=== PATIENT | male | born 1955 | race Caucasian/White ===

== ENCOUNTER 2023-09-24 13:07 | Inpatient (IN) | payer OTHER, MEDICARE, SELFPAY ==
[2023-09-24] VITALS (22 sets, daily range): BP systolic 130–193; BP diastolic 86–143; BMI 29.7
[2023-09-24 10:05] LABS: % Basophils 0.2 % (0-2); % Eosinophils 0.1 % (0-6); % Immature Granulocytes 0.1 % (0-0.5); % Lymphocytes 13.5 % (20.5-51.1); % Monocytes 6.3 % (1.7-9.3); % Neutrophils 79.8 % (42.2-75.2); Absolute Lymphocytes 1.5 10^3/uL (1.2-3.4); Absolute Monocytes 0.7 10^3/uL (0.1-0.6); Absolute Neutrophils 8.7 10^3/uL (1.4-6.5); Hematocrit 46.5 % (39.0-52.0); Hemoglobin 15.7 g/dL (13.0-18.0); Mean Corp Hgb Conc. 33.8 g/dL (33.0-37.0); Mean Corpuscular Hgb 31.8 pg (27.0-31.0); Mean Corpuscular Volume 94.3 fL (80.0-94.0); Mean Platelet Volume 8.9 fL (7.4-10.4); Nucleated Red Blood Cells % 0 % (-); Platelet Count 334 10^3/uL (130-400); Red Blood Cell Count 4.93 10^6/uL (4.70-6.10); Red Cell Dist. Width 13.8 % (11.5-14.5); White Blood Cell Count 10.9 10^3/uL (4.8-10.8)
--- NOTE | 2023-09-24 10:08 | ED.GENMED ---
History of Present Illness
General
Chief Complaint: Breathing Problem
Source: patient
Exam Limitations: none
Time Seen by Provider: 09/24/23 09:50
Nursing documentation reviewed up to this point in time: agreed with
Travel History
Have you had any contact with someone who has COVID-19?: No
Do you have any symptoms of coronavirus? Fever > 100 degrees, chills, cough, shortness of breath, sore throat, loss of taste or smell, muscle aches, or headache?: No
History of Present Illness
History of Present Illness:
68-year-old male who presents emergency room complaining of a lingering cough for the past several weeks to months. He also reports intermittent palpitations. His shortness of breath got worse on .
Past History
Past History
ED Past Medical History: Other (Kidney stones)
ED Past Surgical History: Orthopedic (Bilateral knee surgery) and Other (Cataracts)
Social History
Tobacco: Non-smoker
Alcohol: Occasional
Drug: None
Living: with family
Review of Systems
Review of Systems
Allergies reviewed?: Yes
All Other Systems: Not applicable
Constitutional: Reports no symptoms
EENT: Reports no symptoms
Respiratory: Reports trouble breathing
Cardiac: Reports palpitations
ABD/GI: Reports no symptoms
: Reports no symptoms
Musculoskeletal: Reports no symptoms
Skin: Reports no symptoms
Neurological: Reports no symptoms
Endocrine: Reports no symptoms
Hematologic/Lymphatic: Reports no symptoms
Psychiatric: Reports no symptoms
Phy Exam
Physical Exam
Physical Exam:
Physical Exam
General: no apparent distress, not acutely ill
Neck: supple. no meningeal signs. normal posterior pharynx
Heart: s1/s2 tachycardia, irregular rhythm, no murmur. equal radial
pulses.
HEENT: Pupils equal round reactive to light, EOMI
Lungs: no acute respiratory distress. clear bilaterally
Abdomen: normal bowel sounds. not tender. no CVAT
Neuro: alert and oriented. no focal neurological deficits cranial nerves II through XII intact
Skin: no rash
Psychiatric: well kept. interactive and cooperative
Extremities: no edema. no calf tenderness. negative homans. good distal pulses
Scores
Heart Failure Risk
Heart Failure Risk Score: Yes
History of Stroke or TIA: No
History of intubation for respiratory distress: No
Heart rate on ED arrival >/= 110: Yes
SaO2 <90% on arrival on room air: No
HR >/=110 during 3min walk test (or too ill to perform test): Yes
ECG has acute ischemic changes: No
Urea >/=12mmol/L (BUN 33.6mg/dL): No
Serum CO2>/=35mmol/L: No
Troponin I or T elevated to ID Level (0.4mg/dL): No
NT-proBNP >/=5,000ng/L (5,000pg/ml): Yes
HF Risk Score: 3
Admission Status: HIGH RISK 15.9% Consider SNF treatment or admission to hospital
Course
Orders/Labs/Results
Orders:
Orders
09/24/23 09:44
ECG [Electrocardiogram (*1)] Urgent
Reason for Study: Shortness of Breath
EKG- Treatment ONCE
09/24/23 09:52
IV Insert/Care/Rem.- Treatment PRN
Pulse Ox/cont/shift [RESP] Stat
Quantity: 1
09/24/23 09:53
Cardiac Monitoring- Treatment ONCE
09/24/23 09:57
Complete Blood Count/With Diff Urgent
Comprehensive Metabolic Panel Urgent
Magnesium Urgent
NT-proBNP Urgent
PTT Urgent
Prothrombin Time Urgent
Troponin I Urgent
09/24/23 10:08
Diltiazem 125 mg/125 ml Nss [Cardizem] 125 mg in 125 ml IV NOW
Initial dose in mg/hr, then titrate:: 5
Titrate to keep:: Heart rate 80-100 bpm
Titrate by mg/hr:: 5 mg/hr
Frequency of titrations (minutes):: 15
Maximum dose in mg/hr:: 15
Diltiazem HCl [Cardizem] 5 mg IV NOW STA
09/24/23 10:42
CR Chest Portable - 1 View Urgent
Comment:
Reason For Exam: short of breath
Reason Study Needs to be Portable: Patient Unstable
09/24/23 11:00
CARDIOLOGY CONSULT Routine
Consulting Provider: Flaco Ruiz
Was physician already notified: Yes
Reason for consult: afib with RVR
09/24/23 12:36
Furosemide [Lasix] 40 mg IV NOW STA
09/24/23 12:38
Urinalysis Reflex To Culture Routine
Abnormal Lab Results
09/24/23
09:57
WBC 10.9 H 10^3/uL
(4.8-10.8)
MCV 94.3 H fL
(80.0-94.0)
MCH 31.8 H pg
(27.0-31.0)
Absolute Neuts (auto) 8.7 H 10^3/uL
(1.4-6.5)
Absolute Monos (auto) 0.7 H 10^3/uL
(0.1-0.6)
Neutrophils % 79.8 H %
(42.2-75.2)
Lymphocytes % 13.5 L %
(20.5-51.1)
BUN 25 H mg/dl
(9-20)
Glucose 156 H mg/dl
(70-99)
Total Bilirubin 1.4 H mg/dl
(0.2-1.3)
Troponin I 0.064 H* ng/ml
Total Protein 8.4 H g/dl
(6.3-8.2)
Albumin 5.1 H g/dl
(3.5-5.0)
09/24/23 09:57
09/24/23 09:57
Vital Signs
Initial and Last Documented VS:
Initial Vital Signs
Temp Pulse Resp BP Pulse Ox
97.8 F 148 24 158/131 95
09/24/23 09:40 09/24/23 09:40 09/24/23 09:40 09/24/23 09:40 09/24/23 09:40
Last Documented Vital Signs
Temp Pulse Resp BP Pulse Ox
97.8 F 88 31 169/109 95
09/24/23 09:40 09/24/23 12:15 09/24/23 12:15 09/24/23 12:00 09/24/23 09:40
MDM/Problems Addressed
Differential Diagnosis Includes:
CHF, rapid atrial fibrillation
MDM/Problems Addressed:
Six 8-year-old male with CHF exacerbation and rapid atrial fibrillation new onset. IV Lasix, diltiazem drip given, admit to hospitalist.
Acute Exacerbation and/or Progression of Chronic Illness: HTN, Arrhythmia and Other (CHF)
*Radiology
Radiology exam reviewed: radiology read reviewed (Chest x-ray shows mild CHF)
*Pulse Oximetry
Patient hypoxic: no
*EKG
Interpreted by ED Provider?: Yes
EKG Intrepretation Date: 09/24/23
EKG Intrepretation Time: 09:46
Interpretation: abnormal
Comparison EKG: changes noted
Heart Rate: 151
Rate: tachycardiac
Rhythm: a-fib
[place]: normal axis
Interval: normal interval
QRS Pattern: normal QRS
Ischemia: no ischemia
*Director Of Security Interpretation
Rate: tachycardiac
Interpretation: abnormal
Heart Rate: 155
Rhythm: a-fib
*Critical Care Note
Total Time (30-74mins, 75-104mins- exclusive of procedures): 30
comment:
Critical care statement: A total of 30 minutes of critical care time was provided for this patient. This includes management of unstable vital signs, evaluation of the patient at bedside, reviewing the patient's pertinent medical records, discussion
with consultants, review of old EKGs and review of pertinent medical records. This time with separate from time utilized to perform the aforementioned documented procedures
Patient Management
Social determinants of health affecting care: Living situation
Discussion with other providers: Hospitalist
Escalation/DeEscalation of care consider admission/obs:
Admission indicated
ED Attending Note
-
Portions of this chart may have been created with voice recognition software.� Occasional wrong word or��sound alike� substitutions may have occurred due to the inherent limitations of voice recognition software.
Discharge Plan
Departure
Patient Disposition: Admit
Date of Disposition: 09/24/23
Time of Disposition: 10:43
Admit to: IVU
Presentation/result/management discussed w/ accepting MD/DO: Hospitalist
Patient with high blood pressure during this ER visit?: Yes
Condition: Fair
Discharge Problem:
Atrial fibrillation with rapid ventricular response, Hypertensive urgency, Acute exacerbation of CHF (congestive heart failure)
Prescriptions:
No Action
aspirin 81 mg Tablet,Delayed Release (Dr/Ec)
81 mg PO DAILY
ibuprofen 200 mg Tablet
600 mg PO DAILYPRN PRN (Reason: mild pain)
Nature Fuel Beets
2 tab PO DAILY
Super Beta Prostate
1 tab PO BID
cholecalciferol (vitamin D3)
3 - 4 cap PO DAILYPRN PRN (Reason: supplement)
melatonin
2 gummy PO HSPRN PRN (Reason: sleep)
Referrals:
Huber Vasquez MD [Family Provider] -
Interventions
Interventions:
*Risk Screen - Suicide Last Done: 09/24/23 10:00
*General Assessment Last Done: 09/24/23 09:59
*Neglect/Abuse Screening Last Done: 09/24/23 10:00
ED- Fall Risk Assessment Last Done: 09/24/23 10:01
*ED COVID-19 Vaccine History Last Done: 09/24/23 09:59
ED- Cardiac Assessment Last Done: 09/24/23 10:01
ED- Pulmonary Assessment Last Done: 09/24/23 10:01
Discharge Date and Time
Print Language: MALDIVIAN
[2023-09-24] MEDS: CARDIZEM 125 IV (10:13)
[2023-09-24] MEDS: CARDIZEM 5 MG IV (10:13)
[2023-09-24 10:16] LABS: APTT 26.7 Sec (23.4-35.0); INR 1.13; PT 14.4 Sec (11.4-14.6)
[2023-09-24 10:22] LABS: ALT (SGPT) 50 U/L (0-50); AST (SGOT) 37 U/L (17-59); Albumin 5.1 g/dl (3.5-5.0); Alkaline Phosphatase 86 U/L (38-126); Blood Urea Nitrogen 25 mg/dl (9-20); Carbon Dioxide 22 mmol/L (22-30); Chloride 104 mmol/L (98-107); Estimated Creatinine Clearance 85 ml/min; Glucose 156 mg/dl (70-99); Magnesium 2.1 mg/dl (1.6-2.3); Potassium 4.6 mmol/L (3.5-5.1); Sodium 138 mmol/L (135-145); Total Bilirubin 1.4 mg/dl (0.2-1.3); Total Protein 8.4 g/dl (6.3-8.2); eGFR > 60.00
[2023-09-24 10:40] LABS: Troponin I 0.064 ng/ml
[2023-09-24 10:41] LABS: NT-proBNP 7650 pg/ml
--- NOTE | 2023-09-24 11:54 | CON.CAR ---
Addendum entered and electronically signed by Devante Soriano MD 09/24/23 14:40:
I saw and examined the patient.
The PUZZLE ASSEMBLER's note was reviewed and I agree with the note.
Comment: 68-year-old gentleman who does not seek routine medical care presents with feeling unwell over the last several weeks to months. He has had 'colds'. However lately he has not been able to lie flat in the bed without shortness of breath.
He has no chest pain, typically exercises but has been dealing with his mother who recently had a stroke. Today, he arrives in atrial fibrillation with rapid ventricular response. He is controlled with diltiazem drip. Vital signs have shown
persistently elevated hypertension on exam, he appears in no apparent distress he has an elevated JVP at 13 cm of H2O, lungs are clear to auscultation irregularly irregular rhythm no murmur rubs or gallop. Extremities are warm well-perfused. Chest
x-ray shows mild pulmonary edema. EKG shows A-fib with LVH. Overall, I wonder if his 'colds' were always heart failure. He is in atrial fibrillation with rapid ventricular response and this is likely resulted in heart failure. He has been
managed on a diltiazem drip, initial plan was for RUPA cardioversion but he has just spontaneously converted. Will begin beta-chalo. Will check a TTE. CHADS2 Vascor is at least a 2, I suspect possibly a 3 given elevated blood sugar. I will
check a hemoglobin A1c. We will start Eliquis 5 mg p.o. twice daily. Will continue Lasix for diuresis. We will ask case management to samaniego out both Eliquis and SGLT2 inhibitors.
Will follow.
Original Note:
Consultation
Consultation Request
Date/Time Consultation Requested: 09/24/23 11a
Date/Time Consultation Performed: 09/24/23 11:30a
Requesting Provider: Dr. Thacker
Performing Provider: ARTHUR Mcdermott for Dr. Soriano
Reason for Consultation: Afib with RVR
Medical History
-
Chief Complaint: SOB
History of Present Illness:
Mr. Moran is a 68 yo male with kidney stones, and OA b/l knees, who presents to the ER with c/o SOB and cough since last week. SOB is worse with lying flat and exertion, mildly improves with rest. Had a viral illness last week that he felt
never improved. EKG in the ER shows Afib with RVR 151 bpm, he is on a Cardizem drip with improvement of rates in the 90s. He is admitted to the hospitalist service and we are consulted for Afib with RVR. He admits not seeing his PCP in 13 years.
BP is significantly elevated in the ER today. Currently at rest denies SOB.
Past Medical History
Past Medical History: Other (as above)
Past Surgical History: Orthopedic (b/l knee arthroscopy) and Other (cataracts)
Social History
Tobacco: Former Smoker (2 cigarettes a day for 15 years, quit last year)
Alcohol: Occasional
Personal:
Living: With Family
Employment: Employed ([employer]/data/email)
Family History
Family History: Reviewed & Not Pertinent
Allergies / Home Medications
Allergy/AdvReac Type Severity Reaction Status Date / Time
tetanus toxoid, adsorbed Allergy Swelling Verified 09/24/23 10:13
NOT.[id number] - Not Allergy Intermediate Swelling Uncoded 09/24/23 10:13
Converted 89. See Text.
�Medication �Instructions �Recorded �Confirmed �Type
Nature Fuel Beets 2 tab PO DAILY Supplement 09/24/23 09/24/23 History
Super Beta Prostate 1 tab PO BID Supplement 09/24/23 09/24/23 History
aspirin 81 mg tablet,delayed 81 mg PO DAILY Blood Clot 09/24/23 09/24/23 History
release Prevention/Tx
cholecalciferol (vitamin D3) 3 - 4 cap PO DAILYPRN PRN 09/24/23 09/24/23 History
supplement
ibuprofen 200 mg tablet 600 mg PO DAILYPRN PRN mild pain 09/24/23 09/24/23 History
melatonin 2 gummy PO HSPRN PRN sleep 09/24/23 09/24/23 History
Review of Systems
-
History Source: Patient
All other systems: Negative unless noted
Physical Exam
Vital Signs
Temp Pulse Resp BP Pulse Ox
97.8 F 93 27 144/116 95
09/24/23 09:40 09/24/23 11:45 09/24/23 11:45 09/24/23 11:30 09/24/23 09:40
Lab Results
09/24/23 09:57
09/24/23 09:57
Troponin I 0.064 ng/ml H* 09/24/23 09:57
Peq-T-Agsaxwsshty Pept 7650 pg/ml 09/24/23 09:57
Physical Exam
General: Well Developed, Well Nourished and No Apparent Distress
HEENT: Normocephalic, Anicteric and Moist Mucous Membranes
Respiratory: Clear (mildly diminished b/l bases)
Cardiac: S1/S2 and Irregular Rhythm (tachy)
Breast: Deferred by me
GI: Soft, Non Tender, Non Distended and Normal Bowel Sounds
Rectal: Deferred by Provider
Genito-urinary: No Costovertebral Tender
Musculoskeletal: No Clubbing, No Cyanosis and No Edema
Skin: Warm and Dry
Neuro: AO x 3
Hematologic/Lymphatic: No Lymphadenopathy
Psych: Calm
Impression / Plan
-
Afib - RVR, duration unknown.
- c/o SOB and cough.
- IV Cardizem for rate control, continue.
- [id number] VASc score is 2 (age, new HTN, check hgba1c).
- plan for RUPA/DCCV tomorrow.
SOB - mild CHF on CXR, unknown type.
- check echo.
- proBNP 7650.
- IV Lasix and monitor.
Non-ischemic myocardial injury - acute in the setting of rapid Afib.
- troponin 0.064, trend.
- denies chest pain or SOB now.
Elevated BP - new, acute in the ER.
- monitor with Cardizem.
Data Reviewed
-
EKG: Tracing Personally Visualized and interpreted (Afib with RVR 151 bpm, LVH)
Radiology: Report Reviewed by me (cxr: Probable tiny bilateral pleural effusions, mild CHF)
Labs: Labs Reviewed by me
Old Records: Reviewed
--- NOTE | 2023-09-24 12:17 | HPS.HSE ---
Family Physician
-
Family Physician: Huber Vasquez
Chief Complaint
-
Cough and short of breath
History of Present Illness
68-year-old with no significant past medical history presented to us with lingering cough for past 3 weeks. Patient had upper respiratory infection 3 weeks ago, since then he has lingering cough, which actually is getting better. Patient stated
white sputum with cough. Patient noticed short of breath since last week. Short of breath worse with exertion. Patient also complained of orthopnea. Patient could not sleep last few nights due to short of breath. Denied any weight gain or
swelling. Patient denied any palpitation. He complained of chest heaviness, which he noticed when laying flat. Patient stated no she has not been poor appetite. Patient complained of lightheadedness. Patient denied any deep dysuria or hematuria
but stated very bad odor to his urine. Patient denies any abdominal pain, vomiting, diarrhea. Patient denies any headache or syncope. Patient denies runny nose, congestion.
Patient was noted in A-fib with RVR. Initiated on Cardizem drip. Chest x-ray with mild CHF. Patient was also noted to have elevated Trope. Admitting for further management.
Medical History
Past Medical History
Past Medical History: Reports Other
Additional Past Medical History:
Kidney stones
Past Surgical History: Reports Other
Additional Past Surgical History:
Bilateral meniscus repair
Cataract surgery
Social History
Tobacco: Smoker (1 to 2 cigars weekly)
Alcohol: Occasional
Drug: None
Personal:
Living: With Family
Employment: Employed
Family History
Family History: Not pertinent
Allergies / Home Medications
Allergies reflects when Allergies were last updated in [facility].
Home Medications with original date entered in [facility]
Allergy/Medication List:
Allergies
Allergy/AdvReac Type Severity Reaction Status Date / Time
tetanus toxoid, adsorbed Allergy Swelling Verified 09/24/23 10:13
NOT.[id number] - Not Allergy Intermediate Swelling Uncoded 09/24/23 10:13
Converted 89. See Text.
Home Medications
Nature Fuel Beets 2 tab PO DAILY Supplement 09/24/23
Super Beta Prostate 1 tab PO BID Supplement 09/24/23
aspirin 81 mg tablet,delayed release 81 mg PO DAILY Blood Clot Prevention/Tx 09/24/23
cholecalciferol (vitamin D3) 3 - 4 cap PO DAILYPRN PRN supplement 09/24/23
ibuprofen 200 mg tablet 600 mg PO DAILYPRN PRN mild pain 09/24/23
melatonin 2 gummy PO HSPRN PRN sleep 09/24/23
Review of Systems
-
Constitutional: Reports No Symptoms
EENT: Reports No Symptoms
Respiratory: Reports Cough and Trouble Breathing
Cardiac: Reports No Symptoms
Abdomen/GI: Reports Nausea
: Reports No Symptoms
Musculoskeletal: Reports No Symptoms
Skin: Reports No Symptoms
Neurological: Reports No Symptoms
Endocrine: Reports No Symptoms
Hematologic/Lymphatic: Reports No Symptoms
Psych: Reports No Symptoms
Physical Exam
Vital Signs
Vital Signs
Temp Pulse Resp BP Pulse Ox
97.8 F 93 27 144/116 95
09/24/23 09:40 09/24/23 11:45 09/24/23 11:45 09/24/23 11:30 09/24/23 09:40
Physical Exam
General: Well Developed, Well Nourished and No Apparent Distress
HEENT: NormoCephalic, Moist mucous membranes and Atraumatic
Respiratory: Clear
Cardiac: Irregular Rhythm; No Murmur or Rub
GI: Soft, Non Tender, Non Distended and Normal Bowel Sounds; No Organomegaly
Rectal: Deferred by Provider
Musculoskeletal: No Clubbing, No Cyanosis and No Edema
Skin: No Rash
Neuro: AO x 3 and Nonfocal/grossly intact
Psych: Calm
Laboratory Results
-
09/24/23 09:57
09/24/23 09:57
Laboratory Results
PT 14.4 Sec (11.4-14.6) 09/24/23 09:57
INR 1.13 09/24/23 09:57
APTT 26.7 Sec (23.4-35.0) 09/24/23 09:57
Total Bilirubin 1.4 mg/dl (0.2-1.3) H 09/24/23 09:57
AST 37 U/L (17-59) 09/24/23 09:57
ALT 50 U/L (0-50) 09/24/23 09:57
Alkaline Phosphatase 86 U/L (38-126) 09/24/23 09:57
Troponin I 0.064 ng/ml H* 09/24/23 09:57
Data Reviewed
-
Diagnostic Radiology: Report Reviewed by me
Lab Data: Labs Reviewed by me
Impression/Plan
-
# New onset A-fib with RVR
-EKG with A-fib with RVR
-On Cardizem drip
-Obtain echocardiogram
-Continue to monitor heart rate
-Cardiology consult
# Elevated troponin likely demand ischemia
-Trop 0.064
-Continue to trend Trope
-No complaints of chest pain
# Hypertension
-Blood pressure elevated in ER
-lasix added, monitor BP on Lasix.
# New onset mild CHF
-BNP 7650
-Chest x-ray with impression of Prominence of the interstitial markings concerning for mild CHF.Mild cardiomegaly.Probable tiny bilateral pleural effusions.
-IV Lasix
-Strict OMAR
-Daily weight
-fluid restriction
-Cardiology consult
# DVT prophylaxis
-Lovenox
# CODE STATUS
-Full code
[2023-09-24] MEDS: LASIX 40 MG IV ×2 (12:42→16:57)
--- NOTE | 2023-09-24 13:43 | W.PN.UPDATE ---
Update Note
Progress Note Update
I saw and examined the patient.
The LOOKBACK COORDINATOR or PA's note was reviewed and I agree with the note.
Comment: 68-year-old male who presents with cough and shortness of breath.
144/116, 93, 27, 97.8 �F, 95% on room air
NAD, awake and alert
irreg/irreg, normal S1/S2
CTAB
+BS/soft/NT/ND
CN2-12 intact
no LE edema
CXR: Prominence of the interstitial markings concerning for mild CHF. Mild cardiomegaly. Probable tiny bilateral pleural effusions.
WBC 10.9
proBNP 7650
Trop 0.064
Acute CHF due to afib with RVR:
-check echo
-Lasix 40mg IV BID
-cardizem gtt started in ER, currently at 15mg/hr
-FR
-daily wts, I/Os
[2023-09-24] MEDS: LOPRESSOR 25 MG PO ×3 (14:43→23:16)
[2023-09-24 14:59] LABS: Urine Albumin Trace (Neg - Trace); Urine Bilirubin Negative (Negative); Urine Character Clear (Clear); Urine Color Yellow; Urine Glucose Negative (Negative); Urine Ketone 1+ (Negative); Urine Leukocyte Negative (Negative); Urine Nitrite Negative (Negative); Urine Occult Blood Negative (Negative); Urine Urobilinogen Negative (Neg - 1+)
--- NOTE | 2023-09-24 15:40 | W.PN.UPDATE ---
Update Note
Progress Note Update
Patient seen and evaluated at bedside again. No new symptoms. Cardizem drip was weaned to 5 mg/hour and the patient's heart rate was in the 60s and then stopped. He has had good UOP with lasix as per nursing. There was one blood pressure reading
of 91/77 at 1531. Repeat BP (done by me) 120/92. Will initiate Cardizem 30mg PO Q6H. This was communicated with the ER nurse, Vee Martinez. OK for pt to go to telemetry at this time. Should his cardizem gtt need to be restarted he will need IMU or
IVU.
[2023-09-24] MEDS: LOVENOX 40 MG SC (17:00)
[2023-09-24 17:19] LABS: Troponin I 0.088 ng/ml
[2023-09-24 22:40] LABS: Troponin I 0.086 ng/ml
--- NOTE | 2023-09-24 23:42 | PTCARENOTE ---
Received patient in bed upon change of shift. Patient AAOX3. Denies pain or chest discomfort. Patient does state some SOB ' possibly anxiety' per patient. Pulse ox 94% room air. Patient placed on 02 @ 2 liters with increase to 97% and patient states
feels better. Monitor and EKG showing Afib with heart rate in the 60's to 80's. oriented to unit. call lopez within reach.
[2023-09-25] VITALS (7 sets, daily range): BP systolic 140–174; BP diastolic 85–128; BMI 28.4
[2023-09-25 05:56] LABS: Hematocrit 43.6 % (39.0-52.0); Hemoglobin 14.6 g/dL (13.0-18.0); Mean Corp Hgb Conc. 33.5 g/dL (33.0-37.0); Mean Corpuscular Hgb 31.9 pg (27.0-31.0); Mean Corpuscular Volume 95.2 fL (80.0-94.0); Mean Platelet Volume 9.1 fL (7.4-10.4); Platelet Count 283 10^3/uL (130-400); Red Blood Cell Count 4.58 10^6/uL (4.70-6.10); White Blood Cell Count 8.3 10^3/uL (4.8-10.8)
[2023-09-25] MEDS: LOPRESSOR 25 MG PO ×2 (06:10→11:12)
[2023-09-25 06:21] LABS: ALT (SGPT) 43 U/L (0-50); AST (SGOT) 33 U/L (17-59); Albumin 4.4 g/dl (3.5-5.0); Alkaline Phosphatase 76 U/L (38-126); Blood Urea Nitrogen 29 mg/dl (9-20); Calcium 9.2 mg/dl (8.4-10.2); Carbon Dioxide 26 mmol/L (22-30); Chloride 103 mmol/L (98-107); Direct Bilirubin 0.3 mg/dl (0.0-0.4); Estimated Creatinine Clearance 69 ml/min; Glucose 105 mg/dl (70-99); HDL Cholesterol 38 mg/dl; LDL Cholesterol, Calculated 113 mg/dl; Magnesium 2.1 mg/dl (1.6-2.3); Potassium 4.2 mmol/L (3.5-5.1); Sodium 139 mmol/L (135-145); Total Bilirubin 1.1 mg/dl (0.2-1.3); Total Cholesterol 169 mg/dl (50-199); Total Protein 7.3 g/dl (6.3-8.2); Triglyceride 93 mg/dl (10-149); Very Low Density Lipoprotein 18 mg/dl (0-30); eGFR > 60.00
[2023-09-25 06:49] LABS: TSH Reflex To Free T4 1.61 uIU/ml (0.47-4.68)
[2023-09-25 07:11] LABS: Hepatitis C Antibody Negative (Negative)
[2023-09-25] MEDS: ASPIR LOW (ENTERIC COATED) 81 MG PO (07:57)
[2023-09-25] MEDS: LASIX 40 MG IV ×2 (07:58→15:25)
[2023-09-25 09:22] LABS: Glycohemoglobin (HgbA1c) 6.4 % (4.0-5.6)
--- NOTE | 2023-09-25 09:38 | W.PN.CD ---
Addendum entered and electronically signed by Devante Soriano MD 09/25/23 12:15:
I saw and examined the patient.
The REFRIGERATOR CABINETMAKER's note was reviewed and I agree with the note.
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 Will continue with diuresis. Add GDMT as able. Thankfully rate controlled, so will transition metoprolol to succinate, add MRA and when
euvolemic start Entresto. SGLT2i if affordable. Would recommend reassessment of ef after nsr is restored, would not hold DOAC for cath given large thombus.
Original Note:
Today's Communication / Plan
-
Stop Lovenox and ASA
Start apixaban 5mg BID
Impression / Plan
-
BACKGROUND: 68M with kidney stones and OA (B/L knees) presented with SOB x1 week
Atrial fibrillation with RVR, duration unknown.
-Endorses fatigue
-Back in atrial fibrillation
-Bradycardia with diltiazem gtt, transitioned to metoprolol tartrate Q6H yesterday afternoon
-[id number] VASc score is 3 (age, HTN, DM), start apixaban 5mg BID
SOB, in the setting of acute heart failure type unknown
-Improving with diuresis
-Echocardiogram today
-proBNP 7650.
-Can consider adding SGLT2i if affordable
Non-ischemic myocardial injury - acute in the setting of tachyarrhythmia
-Peak troponin 0.088
-CP free
HTN - new, acute in the ER.
-May need to add additional agent, follow
Type II DM, NEW, Hgba1c 6.4%
Physical Exam
Vital Signs/Labs
Vital Signs
Temp Pulse Resp BP Pulse Ox
97.7 F 60 18 151/117 96
09/25/23 07:57 09/25/23 07:57 09/25/23 07:57 09/25/23 07:58 09/25/23 07:57
09/24/23 09/25/23 09/26/23
06:59 06:59 06:59
Actual Weight 82.157 kg
09/25/23 04:44
09/25/23 04:44
PT 14.4 Sec (11.4-14.6) 09/24/23 09:57
INR 1.13 09/24/23 09:57
APTT 26.7 Sec (23.4-35.0) 09/24/23 09:57
Magnesium 2.1 mg/dl (1.6-2.3) 09/25/23 04:44
Triglycerides 93 mg/dl (10-149) 09/25/23 04:44
LDL Cholesterol, Calc 113 mg/dl 09/25/23 04:44
VLDL Cholesterol, Calc 18 mg/dl (0-30) 09/25/23 04:44
HDL Cholesterol 38 mg/dl 09/25/23 04:44
09/24/23
09:57
Bjm-C-Wkaizifksks Pept 7650
LAB Results
09/24/23 09/24/23 09/24/23
09:57 16:32 22:06
Troponin I 0.064 H* 0.088 H* D 0.086 H*
Physical Exam
Constitutional: No acute distress
EENT: Anicteric and Moist mucous membranes
Cardiovascular: Rhythm/rate is irregular and S1S2 is normal
Respiratory: Respiratory effort normal and Lungs clear to auscul.
GI: Soft, Distention absent, Flat and Non tender
Neuro/Psych: AO x 3
Other: Skin (warm and dry)
Data Reviewed
-
Date of Service: September 25, 2023
--- NOTE | 2023-09-25 09:41 | W.PN.HOSP.TC ---
Today's Communication/Plan
-
see bold
Assessment / Plan
Assessment / Plan
Gen: NAD, AAOx3.
Eyes: EOMI, PERRLA, no scleral icterus.
Neck: supple.
CV: irreg/irreg, +S1/S2, no m/r/g.
Resp: CTAB, no rales, wheezes, or rhonchi.
Abd: +BS, soft, NT, ND
Skin: No rashes. No LE edema
Neuro: CN 2-12 intact, non-focal.
Psych: Normal mood and affect.
CXR: Prominence of the interstitial markings concerning for mild CHF. Mild cardiomegaly. Probable tiny bilateral pleural effusions.
Acute CHF due to afib with RVR:
-proBNP 7650
-Minimally elevated, flat, troponins represent acute nonischemic myocardial injury
-check echo (for RUPA/CV today)
-Lasix 40mg IV BID
-cardizem gtt started in ER and was weaned to off before transfer to the floor
-cont Lopressor 25mg PO Q6H
-FR
-daily wts, I/Os
Elevated BP:
-cont BB
-await echo which will determine meds fo GDMT
Discussed with Dr. Soriano, [place] Eli, RN at length.
FULL/Lovenox
Total time spent on today's encounter was 50 minutes which included time spent in counseling the patient/family regarding diagnosis and treatment plan as listed above, goals of care, and symptom management. Case was discussed with nursing staff,
specialists, and care coordinators/case management. All labs and imaging personally reviewed by me. Remainder the time spent in detailed review of previous records, lab data, imaging, and other medical provider documentation.
Anticipated Discharge: 24 - 48 hours
Subjective/Interval History
-
Date of Service: September 25, 2023
Report SOB.
Objective Data
-
Labs:
Laboratory Results
09/25/23
04:44
WBC 8.3
Hgb 14.6
Hct 43.6
Plt Count 283
Sodium 139
Potassium 4.2
Chloride 103
Carbon Dioxide 26
BUN 29 H
Creatinine 1.1
Glucose 105 H
Calcium 9.2
Total Bilirubin 1.1
AST 33
ALT 43
Alkaline Phosphatase 76
Vital Signs:
Vital Signs
Temp Pulse Resp BP Pulse Ox
97.7 F 60 18 151/117 96
09/25/23 07:57 09/25/23 07:57 09/25/23 07:57 09/25/23 07:58 09/25/23 07:57
--- NOTE | 2023-09-25 10:07 | PTCARENOTE ---
Pt is asymptomatic with elevated blood pressures this morning of 174/117. Dr. Thacker made aware. No changes made at this time.
[2023-09-25] MEDS: ELIQUIS 5 MG PO ×2 (10:20→19:47)
--- NOTE | 2023-09-25 15:33 | CM ---
CM met with pt bedside
Resides with his spouse in a 2SH with 1STE- full flight to 2nd floor
Pt notes independence with his ADLs
Denies use of DMEs
PCP- Huber Vasquez
Rx- [facility]
CM consult for med pricing
Call to [facility] [phone]
All meds same pricing (Eliquis 5mg BID, Farxiga 10mg QD, Jardiance 10mg QD)
$25/30 days retail $50/90 days mail order/[employer]
Update to cardio/Dr Soriano TT
No dc needs anticipated
Discharge Disposition- home, no needs anticipated
[2023-09-25] MEDS: TOPROL XL 100 MG PO (21:16)
[2023-09-26 03:00] VITALS: BP 151/106
[2023-09-26 05:29] VITALS: BMI 27.6
[2023-09-26 05:51] LABS: Hematocrit 43.1 % (39.0-52.0); Hemoglobin 14.8 g/dL (13.0-18.0); Mean Corp Hgb Conc. 34.3 g/dL (33.0-37.0); Mean Corpuscular Hgb 32.4 pg (27.0-31.0); Mean Corpuscular Volume 94.3 fL (80.0-94.0); Mean Platelet Volume 8.9 fL (7.4-10.4); Platelet Count 269 10^3/uL (130-400); Red Blood Cell Count 4.57 10^6/uL (4.70-6.10); Red Cell Dist. Width 13.8 % (11.5-14.5); White Blood Cell Count 8.2 10^3/uL (4.8-10.8)
[2023-09-26 06:16] LABS: Blood Urea Nitrogen 36 mg/dl (9-20); Carbon Dioxide 26 mmol/L (22-30); Chloride 104 mmol/L (98-107); Estimated Creatinine Clearance 62 ml/min; Glucose 102 mg/dl (70-99); Potassium 3.8 mmol/L (3.5-5.1); Sodium 139 mmol/L (135-145); eGFR > 60.00
[2023-09-26 07:30] VITALS: BP 152/105
[2023-09-26] MEDS: LASIX 40 MG IV ×2 (08:46→16:27)
[2023-09-26] MEDS: ALDACTONE 25 MG PO (08:46)
[2023-09-26] MEDS: ELIQUIS 5 MG PO ×2 (08:46→19:48)
[2023-09-26] MEDS: FARXIGA 10 MG PO (08:46)
[2023-09-26] MEDS: ENTRESTO 24 MG/26 MG 1 TAB PO ×2 (09:03→19:49)
--- NOTE | 2023-09-26 09:53 | PTCARENOTE ---
Notified the provider that the patient's pressure was elevated to 152/105 for AM vitals and was also 151/103 at 0300 today. Patient received his ordered morning medications, including Entresto and diuretics. Provider to address during rounds. VS
performed as ordered.
[2023-09-26 11:00] VITALS: BP 136/95
--- NOTE | 2023-09-26 11:38 | W.PN.HOSP.TC ---
Today's Communication/Plan
-
see bold
Assessment / Plan
Assessment / Plan
Gen: remains NAD, AAOx3.
Eyes: EOMI, PERRLA, no scleral icterus.
Neck: supple.
CV: remains irreg/irreg, +S1/S2, no m/r/g.
Resp: remains CTAB, no rales, wheezes, or rhonchi.
Abd: +BS, soft, NT, ND
Skin: No rashes. No LE edema
Neuro: CN 2-12 intact, non-focal.
Psych: Normal mood and affect.
CXR: Prominence of the interstitial markings concerning for mild CHF. Mild cardiomegaly. Probable tiny bilateral pleural effusions.
RUPA: EF 35-40%, global hypokinesis, no significant valve abnormalities, large thrombus in the left atrial appendage.
Acute HFrEF exacerbated by afib with RVR:
-proBNP 7650
-cardizem gtt started in ER and was weaned to off before transfer to the floor
-Minimally elevated, flat, troponins represent acute nonischemic myocardial injury
-on 09/25/23 pt had RUPA for planned CV. With FLORINA thrombus obviously no CV was done.
-echo above, EF 35-40%
-cont Lasix 40mg IV BID
-cont Toprol XL/Aldactone/Entresto/Farxiga
-FR
-daily wts, I/Os
-cont Eliquis
Large thrombus in the left atrial appendage:
-cont Eliquis
Essential hypertension:
-cont Toprol XL/Aldactone/Entresto
Discussed with Dr. Cordon
FULL/Eliquis
Anticipated Discharge: 24 - 48 hours
Subjective/Interval History
-
Date of Service: September 26, 2023
Reports dyspnea on exertion. Denies chest pain or shortness of breath at rest.
Objective Data
-
Labs:
Laboratory Results
09/26/23
05:18
WBC 8.2
Hgb 14.8
Hct 43.1
Plt Count 269
Sodium 139
Potassium 3.8
Chloride 104
Carbon Dioxide 26
BUN 36 H
Creatinine 1.1
Glucose 102 H
Calcium 9.0
Vital Signs:
Vital Signs
Temp Pulse Resp BP Pulse Ox
98.6 F 68 20 152/105 95
09/26/23 07:30 09/26/23 07:30 09/26/23 07:30 09/26/23 07:30 09/26/23 07:30
I&O
09/25/23 09/26/23 09/27/23
06:59 06:59 06:59
Intake Total 480 / 480
Balance 480 / 480
--- NOTE | 2023-09-26 12:17 | CM ---
Chart reviewed and plan is to home when stable no needs.
Plan; Home no needs when stable.
--- NOTE | 2023-09-26 12:24 | W.PN.CD ---
Addendum entered and electronically signed by Jj Cordon MD 09/26/23 13:13:
Patient seen and examined in collaboration with [employer] [facility]; agree with below.
-Patient still with A-fib with RVR today; will increase metoprolol succinate to 100 mg twice daily.
-Continue Lasix 40 mg IV twice daily today; transition to PO tomorrow.
-Will add Entresto for further GDMT.
Original Note:
Today's Communication / Plan
-
-continue IV Lasix
-increase metoprolol to BID and follow telemetry and BP's
Impression / Plan
-
BACKGROUND: 68M with kidney stones and OA (B/L knees) presented with SOB x1 week
Atrial fibrillation with RVR, duration unknown:
-RUPA showed large thrombus in the left atrial appendage.
-continue apixaban 5mg BID
-rates still fast- increase metoprolol to BID
HFrEF: acute
-Improving with diuresis
-RUPA 09/25/23: Moderately reduced left ventricular systolic function. Left ventricular ejection fraction is estimated at 35-40%. Global hypokinesis. Large thrombus in the left atrial appendage.
-now on Farxiga, metoprolol, Entresto, and Aldactone
Non-ischemic myocardial injury - acute in the setting of tachyarrhythmia
-Peak troponin 0.088
-CP free
HTN:
-BP still elevated
-monitor with multiple new meds
Type II DM, NEW, Hgba1c 6.4%:
-management per primary team
Physical Exam
Vital Signs/Labs
Vital Signs
Temp Pulse Resp BP Pulse Ox
98.6 F 68 20 152/105 95
09/26/23 07:30 09/26/23 07:30 09/26/23 07:30 09/26/23 07:30 09/26/23 07:30
09/25/23 09/26/23 09/27/23
06:59 06:59 06:59
Actual Weight 82.157 kg 79.974 kg
09/26/23 05:18
09/26/23 05:18
PT 14.4 Sec (11.4-14.6) 09/24/23 09:57
INR 1.13 09/24/23 09:57
APTT 26.7 Sec (23.4-35.0) 09/24/23 09:57
Magnesium 2.1 mg/dl (1.6-2.3) 09/25/23 04:44
Triglycerides 93 mg/dl (10-149) 09/25/23 04:44
LDL Cholesterol, Calc 113 mg/dl 09/25/23 04:44
VLDL Cholesterol, Calc 18 mg/dl (0-30) 09/25/23 04:44
HDL Cholesterol 38 mg/dl 09/25/23 04:44
09/24/23
09:57
Zmk-P-Lhpbxgqqyow Pept 7650
LAB Results
09/24/23 09/24/23 09/24/23
09:57 16:32 22:06
Troponin I 0.064 H* 0.088 H* D 0.086 H*
Physical Exam
Constitutional: No acute distress
EENT: Anicteric
Cardiovascular: Rhythm/rate is irregular
Respiratory: Respiratory effort normal and Other (lungs diminished to bases)
Neuro/Psych: AO x 3
Data Reviewed
-
Date of Service: September 26, 2023
EKG: Other (tele AFIB rate-controlled)
Labs: Labs Reviewed by me
[2023-09-26] MEDS: TOPROL XL 100 MG PO ×2 (13:03→19:49)
[2023-09-26 15:00] VITALS: BP 109/87
[2023-09-26 19:15] VITALS: BP 126/80
[2023-09-26 22:33] VITALS: BP 122/70
[2023-09-27 03:12] VITALS: BP 109/77
[2023-09-27 06:00] VITALS: BMI 27.0
[2023-09-27 07:30] VITALS: BP 127/78
[2023-09-27 07:34] LABS: Hematocrit 51.1 % (39.0-52.0); Hemoglobin 17.4 g/dL (13.0-18.0); Mean Corp Hgb Conc. 34.1 g/dL (33.0-37.0); Mean Corpuscular Hgb 32.3 pg (27.0-31.0); Platelet Count 334 10^3/uL (130-400); Red Blood Cell Count 5.38 10^6/uL (4.70-6.10); White Blood Cell Count 10.1 10^3/uL (4.8-10.8)
[2023-09-27 07:53] LABS: Blood Urea Nitrogen 41 mg/dl (9-20); Carbon Dioxide 29 mmol/L (22-30); Chloride 102 mmol/L (98-107); Estimated Creatinine Clearance 52 ml/min; Glucose 114 mg/dl (70-99); Potassium 4.6 mmol/L (3.5-5.1); Sodium 143 mmol/L (135-145); eGFR > 60.00
--- NOTE | 2023-09-27 07:58 | W.PN.CD ---
Today's Communication / Plan
-
give IV lasix now then 40mg po daily for discharge
labs ,14 and 21 days
otherwise continue current gdmt
ok for discharge after chf educator
will arrange close follow up
Impression / Plan
-
BACKGROUND: 68M with kidney stones and OA (B/L knees) presented with SOB x1 week
Atrial fibrillation with RVR, duration unknown:
-RUPA showed large thrombus in the left atrial appendage.
-relook will be planned in 4-6 weeks
-continue apixaban 5mg BID
-rates improved
-eventually will benefit from rhythm control with PVI
HFrEF: acute
-Improving with diuresis---wt down to 78.131
-would transition to 40mg po lasix daily after today's IV dose for discharge
-TTE more reliable assessment of LVEF, Severely reduced left ventricular systolic function. Left ventricular ejection fraction is 25-30%.
-RUPA 09/25/23: Moderately reduced left ventricular systolic function. Left ventricular ejection fraction is estimated at 35-40%. Global hypokinesis. Large thrombus in the left atrial appendage.
-now on Farxiga, metoprolol, Entresto, and Aldactone
-he will need labs in 12/08/ days
Non-ischemic myocardial injury - acute in the setting of tachyarrhythmia
-Peak troponin 0.088
-CP free
HTN:
-BP still elevated
-monitor with multiple new meds
Type II DM, NEW, Hgba1c 6.4%:
-management per primary team
Subjective:
he is feeling better, a bit lh when standing but passes quickly
Physical Exam
Vital Signs/Labs
Vital Signs
Temp Pulse Resp BP Pulse Ox
98.2 F 89 18 109/77 96
09/27/23 03:12 09/27/23 03:12 09/27/23 03:12 09/27/23 03:12 09/27/23 03:12
09/26/23 09/27/23 09/28/23
06:59 06:59 06:59
Actual Weight 79.974 kg 78.131 kg
09/27/23 06:31
09/27/23 06:31
PT 14.4 Sec (11.4-14.6) 09/24/23 09:57
INR 1.13 09/24/23 09:57
APTT 26.7 Sec (23.4-35.0) 09/24/23 09:57
Magnesium 2.1 mg/dl (1.6-2.3) 09/25/23 04:44
Triglycerides 93 mg/dl (10-149) 09/25/23 04:44
LDL Cholesterol, Calc 113 mg/dl 09/25/23 04:44
VLDL Cholesterol, Calc 18 mg/dl (0-30) 09/25/23 04:44
HDL Cholesterol 38 mg/dl 09/25/23 04:44
09/24/23
09:57
Xbq-E-Wqrbboaznrn Pept 7650
LAB Results
09/24/23 09/24/23 09/24/23
09:57 16:32 22:06
Troponin I 0.064 H* 0.088 H* D 0.086 H*
Physical Exam
Constitutional: No acute distress
Cardiovascular: Pedal edema is absent, JVD pressure is normal, Systolic murmur absent, Diastolic murmur absent and Rhythm/rate is irregular
Respiratory: Respiratory effort normal, Lungs clear to auscul., Wheeze Absent, Crackles Absent and Rhonchi Absent
Neuro/Psych: AO x 3
Data Reviewed
-
Date of Service: September 27, 2023
EKG: Other (tele: rates improved)
--- NOTE | 2023-09-27 08:52 | W.PN.HOSP.TC ---
Today's Communication/Plan
-
d/c
Assessment / Plan
Assessment / Plan
Gen: continues to remain NAD, AAOx3.
Eyes: EOMI, PERRLA, no scleral icterus.
Neck: supple.
CV: continues to remain irreg/irreg, +S1/S2, no m/r/g.
Resp: continues to remain CTAB, no rales, wheezes, or rhonchi.
Abd: +BS, soft, NT, ND
Skin: No rashes. No LE edema
Neuro: CN 2-12 intact, non-focal.
Psych: Normal mood and affect.
CXR: Prominence of the interstitial markings concerning for mild CHF. Mild cardiomegaly. Probable tiny bilateral pleural effusions.
RUPA: EF 35-40%, global hypokinesis, no significant valve abnormalities, large thrombus in the left atrial appendage.
Acute HFrEF exacerbated by afib with RVR:
-proBNP 7650
-cardizem gtt started in ER and was weaned to off before transfer to the floor
-Minimally elevated, flat, troponins represent acute nonischemic myocardial injury
-on 09/25/23 pt had RUPA for planned CV. With FLORIAN thrombus obviously no CV was done.
-echo above, EF 35-40%
-pt was diuresed with IV Lasix. Transition to Lasix 40mg PO daily on d/c.
-cont Toprol XL/Aldactone/Entresto/Farxiga
-FR
-daily wts, I/Os
-cont Eliquis
Large thrombus in the left atrial appendage:
-cont Eliquis
Essential hypertension:
-cont Toprol XL/Aldactone/Entresto
Discussed with Dr. Soriano.
FULL/Eliquis
Total time spent on d/c = 31 min. This included today's physical exam, progress note, review of laboratory and diagnostic data, preparation of discharge documents and prescriptions, and discussions about the pt's hospital course and discharge plan
with the patient and other medical file clerk involved in the patient's care.
Anticipated Discharge: Today
Subjective/Interval History
-
Date of Service: September 27, 2023
Objective Data
-
Labs:
Laboratory Results
09/27/23
06:31
WBC 10.1
Hgb 17.4
Hct 51.1
Plt Count 334 D
Sodium 143
Potassium 4.6
Chloride 102
Carbon Dioxide 29
BUN 41 H
Creatinine 1.3
Glucose 114 H
Calcium 10.0
Vital Signs:
Vital Signs
Temp Pulse Resp BP Pulse Ox
97.6 F 55 22 127/78 97
09/27/23 07:30 09/27/23 07:30 09/27/23 07:30 09/27/23 07:30 09/27/23 07:30
I&O
09/26/23 09/27/23 09/28/23
06:59 06:59 06:59
Intake Total 480 / 480 680 / 680
Output Total 2450 / 2450
Balance 480 / 480 -1770 / -1770
[2023-09-27] MEDS: ENTRESTO 24 MG/26 MG 1 TAB PO (09:11)
[2023-09-27] MEDS: LASIX 40 MG IV (09:12)
[2023-09-27] MEDS: ELIQUIS 5 MG PO (09:12)
[2023-09-27] MEDS: FARXIGA 10 MG PO (09:12)
[2023-09-27] MEDS: ALDACTONE 25 MG PO (09:12)
[2023-09-27] MEDS: TOPROL XL 100 MG PO (09:13)
[2023-09-27 11:00] VITALS: BP 104/71
--- NOTE | 2023-09-27 11:42 | CM ---
Patient is for discharge to home today, Copay for Eliquis and Farxiga $25 per month patient made aware, Eliquis coupon provided to patient.
Plan; Home with spouse.
--- NOTE | 2023-09-27 15:51 | W.DCSUMMARY ---
Discharge Summary
Discharge Data
Date of Admission: 09/24/23
Date of Discharge: 09/27/23
-
Pending Results: No
Hospital Course
Primary diagnoses:
Acute heart failure with reduced ejection fraction exacerbated by atrial fibrillation with rapid ventricular response
Large thrombus in the left atrial appendage
Acute nonischemic myocardial injury
Secondary diagnoses:
Essential hypertension
Consultants:
Cardiology
Imaging:
CXR: Prominence of the interstitial markings concerning for mild CHF. Mild cardiomegaly. Probable tiny bilateral pleural effusions.
RUPA: EF 35-40%, global hypokinesis, no significant valve abnormalities, large thrombus in the left atrial appendage.
TTE: Severely reduced left ventricular systolic function. Left ventricular ejection fraction is 25-30%. No significant valve disease.
Hospital course: 68-year-old male who presented with chief complaints of cough and shortness of breath as outlined in the H&P done on admission. His proBNP was 7650. He was in A-fib with RVR. He was placed on a Cardizem drip which was weaned off
before he was transferred out of the ER. He had minimally elevated, flat, troponins which represented acute nonischemic myocardial injury. Initially the patient was to have a RUPA cardioversion. During RUPA a large left atrial appendage thrombus
was found and no cardioversion was done. He had been placed on Eliquis. Patient was aggressively diuresed with IV Lasix and transition to oral Lasix on discharge. He was placed on Toprol-XL/Aldactone/Entresto/Farxiga. The patient will need close
outpatient follow-up. He was discharged in medically stable condition.
Discharge Plan
-
Patient Disposition: Home with Home Care
Discharge Diagnosis/Procedures: Acute heart failure with reduced ejection fraction exacerbated by atrial fibrillation with rapid ventricular response, large thrombus in the left atrial appendage
Condition: Good
Diet: Low Cholesterol
Additional Diets: Fluid restrict to 1200 cc/day
Activity: As tolerated
Driving Restrictions: As prior to admission
Blood Work: Renal profile in 7, 14, and 21 days- slip to be provided at d/c
Specialty Instructions: Weigh Daily- Call MD for wt gain/loss 3 lbs overnight/5 lbs in 1 week
Instructions: High cholesterol, Low Carbohydrate Diet
Referrals:
Huber Vasquez MD [Family Provider] - in less than 1 week
Caron Fung CRNP [Specified Professional Personl] - 10/04/23 10:00 am
Prescriptions:
New
metoprolol succinate 100 mg Tablet Extended Release 24 Hr
100 mg PO BID Qty: 60 0RF
spironolactone 25 mg Tablet
25 mg PO DAILY Qty: 30 0RF
Eliquis 5 mg Tablet
5 mg PO BID Qty: 60 0RF
dapagliflozin propanediol 10 mg Tablet
10 mg PO DAILY Qty: 30 0RF
Entresto 24-26 mg Tablet
1 tab PO BID Qty: 60 0RF
furosemide [Lasix] 40 mg tablet
40 mg PO DAILY Qty: 30 0RF
Continued
aspirin 81 mg Tablet,Delayed Release (Dr/Ec)
81 mg PO DAILY
Nature [employer] Beets
2 tab PO DAILY
Super Beta Prostate
1 tab PO BID
cholecalciferol (vitamin D3)
3 - 4 cap PO DAILYPRN PRN (Reason: supplement)
melatonin
2 gummy PO HSPRN PRN (Reason: sleep)
Discontinued
ibuprofen 200 mg Tablet
600 mg PO DAILYPRN PRN (Reason: mild pain)
Discharge Orders:
Discharge Patient (As Directed); Ordered 09/27/23
Ordered By: Betito Thacker
Discharge Date and Time
Discharge Date/Time: 09/27/23 13:46
Print Language: MACEDONIAN
== END 2023-09-27 13:46 | disposition home or self-care (01) | DRG 291 ==
LOC: 4 WEST ACU 13:07
PROVIDERS: Registered Nurse; ADMITTING PHYSICIAN Internal Medicine; EMERGENCY PHYSICIAN Emergency Medicine; FAMILY PHYSICIAN Family Medicine; OTHER PHYSICIAN Internal Medicine Cardiovascular Disease
PROC: B24BZZ4 Ultrasonography of Heart with Aorta, Transesophageal (ICD-10-PCS; 2023-09-25)
DX: I11.0 Hypertensive heart disease with heart failure (principal); I50.23 Acute on chronic systolic (congestive) heart failure; I48.91 Unspecified atrial fibrillation; I5A Non-ischemic myocardial injury (non-traumatic); I51.3 Intracardiac thrombosis, not elsewhere classified; E11.9 Type 2 diabetes mellitus without complications; I16.0 Hypertensive urgency; M17.0 Bilateral primary osteoarthritis of knee; F17.200 Nicotine dependence, unspecified, uncomplicated; Z88.7 Allergy status to serum and vaccine; Z87.442 Personal history of urinary calculi; Z79.82 Long term (current) use of aspirin; Z82.3 Family history of stroke
CPT/HCPCS: 71045; 80048; 80053; 80061; 81003; 82248; 83036; 83735; 83880; 84443; 84484; 85025; 85027; 85610; 85730; 86803; 93005; 93306; 93312; 93320; 93325; 96374; 99291

== ENCOUNTER → 2023-11-16 07:10 | Day surgery (SDC) | payer OTHER, MEDICARE, SELFPAY ==
[2023-11-16 08:04] LABS: Glucose - Point of Care 98 mg/dl (70-99)
--- NOTE | 2023-11-16 08:26 | ITS.CL.CARDI ---
[employer] Superintendent - Cardioversion
Cardioversion
Procedure Report:
Date of Procedure: 11/16/2023.
Procedure: Cardioversion.
Indication: Symptomatic atrial fibrillation.
Performing Physician: Rohini Soriano MD
Technique: The patient was brought to the [facility] area. Signed informed consent was obtained. A time out was called and performed. The patient was sedated by a member of the anesthesia service. Anticoagulation status was reviewed and was
appropriate. R-2 pads were placed anteriorly and posteriorly. A RUPA was first performed to confirm lack of suspicion for left atrial, left atrial appendage, right atrial, right atrial appendage thrombus. A 200 J synchronized biphasic shock restored
normal sinus rhythm without significant bradycardia. There were no complications.
Conclusion: Uncomplicated cardioversion from atrial fibrillation to sinus rhythm.
Recommendation: Routine post cardioversion care. Continue long term care phlebotomist anticoagulation.
== END ==
LOC: CATH 07:10
PROVIDERS: ATTENDING PHYSICIAN Internal Medicine Cardiovascular Disease; FAMILY PHYSICIAN Family Medicine
DX: I34.0 Nonrheumatic mitral (valve) insufficiency (principal); I48.0 Paroxysmal atrial fibrillation; I11.0 Hypertensive heart disease with heart failure; I50.9 Heart failure, unspecified; E11.9 Type 2 diabetes mellitus without complications; N20.0 Calculus of kidney; Z87.891 Personal history of nicotine dependence; Z79.01 Long term (current) use of anticoagulants; Z79.82 Long term (current) use of aspirin
CPT/HCPCS: 93312; 93320; 93325; 82962; 92960; 93005

== ENCOUNTER → 2024-02-18 08:02 | Outpatient (REF) | payer OTHER, SELFPAY ==
--- NOTE | 2024-02-18 09:05 | CARDSERVLU ---
Echocardiogram with Lumason completed after protocol screening completed. Allergies verified.
Patent IV site: ____left hand_
IV site flushed with 0.9% NaCl pre and post administration.
Diluted bolus method utilized to enhance visualization of ventricular fountain.
Total volume given: _1.5__ mL
Patient tolerated all procedures well without complications.
#22 isaac placed left hand. Lumason given. INT d/c'd. dsg applied. pressure held. No bleeding noted.
== END ==
LOC: RCS 08:02
PROVIDERS: ATTENDING PHYSICIAN Internal Medicine Cardiovascular Disease; FAMILY PHYSICIAN Family Medicine
DX: I50.20 Unspecified systolic (congestive) heart failure (principal)
CPT/HCPCS: 93308; 93321; 93325; Q9950

== ENCOUNTER → 2024-04-08 13:16 | Outpatient (REF) | payer OTHER, SELFPAY | LOC: DHSLP 13:16 | PROVIDERS: ATTENDING PHYSICIAN Internal Medicine; FAMILY PHYSICIAN Family Medicine | DX: G47.19 Other hypersomnia (principal); R06.83 Snoring | CPT/HCPCS: 95800 ==

== ENCOUNTER 2024-05-01 06:00 | Day surgery (SDC) | payer OTHER, SELFPAY ==
[2024-04-10 08:07] VITALS: BMI 26.4
[2024-04-10 09:20] LABS: % Basophils 0.2 % (0-2); % Eosinophils 3.3 % (0-6); % Immature Granulocytes 0.4 % (0-0.5); % Lymphocytes 22.8 % (20.5-51.1); % Monocytes 8.2 % (1.7-9.3); % Neutrophils 65.1 % (42.2-75.2); Absolute Eosinophils 0.2 10^3/uL (0-0.7); Absolute Lymphocytes 1.3 10^3/uL (1.2-3.4); Absolute Monocytes 0.5 10^3/uL (0.1-0.6); Absolute Neutrophils 3.7 10^3/uL (1.4-6.5); Hematocrit 44.1 % (39.0-52.0); Hemoglobin 15.4 g/dL (13.0-18.0); Mean Corp Hgb Conc. 34.9 g/dL (33.0-37.0); Mean Corpuscular Volume 94.6 fL (80.0-94.0); Mean Platelet Volume 8.8 fL (7.4-10.4); Nucleated Red Blood Cells % 0 % (-); Platelet Count 251 10^3/uL (130-400); Red Blood Cell Count 4.66 10^6/uL (4.70-6.10); Red Cell Dist. Width 12.3 % (11.5-14.5); White Blood Cell Count 5.7 10^3/uL (4.8-10.8)
[2024-04-10 09:40] LABS: ALT (SGPT) 40 U/L (0-50); AST (SGOT) 35 U/L (17-59); Albumin 4.4 g/dl (3.5-5.0); Alkaline Phosphatase 63 U/L (38-126); Blood Urea Nitrogen 25 mg/dl (9-20); Calcium 9.4 mg/dl (8.4-10.2); Carbon Dioxide 26 mmol/L (22-30); Chloride 104 mmol/L (98-107); Estimated Creatinine Clearance 57 ml/min; Glucose 111 mg/dl (70-99); Potassium 4.6 mmol/L (3.5-5.1); Sodium 142 mmol/L (135-145); Total Bilirubin 0.5 mg/dl (0.2-1.3); Total Protein 7.3 g/dl (6.3-8.2); eGFR > 60.00
[2024-05-01] VITALS (10 sets, daily range): BP systolic 115–155; BP diastolic 66–87; BMI 25.6
[2024-05-01 08:57] LABS: ACT-LR - POC 297 Seconds (116-155)
[2024-05-01 09:20] LABS: ACT-LR - POC 392 Seconds (116-155)
--- NOTE | 2024-05-01 09:48 | ITS.CL.ABL ---
Office Machine Installer - Ablation
Ablation
Procedure Report:
AFIB ablation:
Mr. Moran is a very pleasant 69 yr old gentleman with symptomatic paroxysmal AF presented today to the EP lab for atrial fibrillation ablation.
Date of the Procedure:
05/01/2024
Indications:
Paroxysmal atrial fibrillation
Pre-Operative Diagnosis:
Paroxysmal atrial fibrillation
Post-Operative Diagnosis:
Paroxysmal atrial fibrillation
Procedure Performed:
Atrial fibrillation ablation with Pulsed-Field approach for pulmonary vein isolation
Performing Physician:
Kingsley Hutchison MD
Assistants:
EP staff
Anesthesia:
See anesthesia records
Detailed Description of the Procedure:
Written informed consent was obtained from the patient after a full explanation of the risks and benefits of the procedure including the risks of sedation and anesthesia.
The patient was brought to the electrophysiology laboratory in stable condition in fasting state. Continuous electrocardiographic and hemodynamic monitoring was initiated.
The initial rhythm was normal sinus rhythm.
The procedure site was meticulously prepared with surgical scrub and allowed to dry with no pooling. Sterile draping was applied to cover the procedure site. The image intensifier was draped with sterile bag and positioned over the patient. After
infusion of local anesthetic, vascular access was obtained under ultrasound guidance and sheaths were placed over guide wire as detailed below.
Sheath and Catheter Placement:
The following catheters / sheaths were placed
Sheaths:
15Fr steerable sheath (FlexCath Cross�, [employer]) in right femoral vein in right femoral vein
9Fr in right femoral vein
7Fr in right femoral vein
Catheters:
Carto Pentaray mapping catheter � at locations of RA, LA
PulseSelect� PFA catheter
ICE catheter -AcuNav - at locations of RA, SVC, and RV.
Decapolar Bard catheter in RA and CS
Intracardiac ECHO:
An 8-Hungarian AcuNav intracardiac ECHO (ICE) probe was advanced through the 9-Hungarian sheath in the right femoral vein into the right atrium under fluoroscopic and ICE ultrasound image guidance and a baseline ECHO study was performed. The left atrial
size was mildly dilated. There was moderate tricuspid regurgitation. The aortic valve was grossly normal. There was borderline normal left ventricular systolic functions. There is trace pericardial effusion. All the four veins were identified and
has flow identified.
During the procedure, ICE was used for monitoring of complications, guidance of trans-septal puncture, monitor the catheter position and tracking ablation lesions. No change in the pericardial space noted throughout the procedure.
Trans-septal Puncture:
Heparin was initiated and infused to maintain appropriate ACT. A J-tipped guidewire was advanced through the 8-Hungarian sheath in the right femoral vein into the superior vena cava under fluoroscopic and ICE guidance. The 8-Hungarian sheath was exchanged
for a FlexCath Cross sheath which was advanced into the superior vena cava. An AcAudiosocket transseptal access system was utilized to perform the trans-septal puncture. The apparatus was withdrawn until it was in contact with the fossa ovalis. The
position was adjusted based on fluoroscopy and ultrasound images from ICE. Under fluoroscopic, hemodynamic and ICE ultrasound guidance, left atrium was cannulated by advancing the needle. Once atrial septum was cannulated, the needle was pulled back
and a guide wire was advanced through the needle into the left atrium. The guide wire was advanced into the left superior pulmonary vein. Both the sheath and the dilator was advanced into the left atrium. The dilator with the needle was withdrawn.
Blood was aspirated from the FlexCath cross sheath and arterial blood confirmed. The sheath was flushed. Saline injection noted into the left atrium on ICE. The mapping catheter was advanced in the Agilis sheath into the left pulmonary vein. Left
atrial pressure was measured.
3D Electroanatomic Mapping:
Using the Pentaray catheter advanced through sheath into the left atrium, an electroanatomic map (EAM) of the left atrium was created using [employer] mapping system. The map was used for localization of catheter position and tacking of
ablation lesions. The EAM of the left atrium showed 4 pulmonary veins with two left sided and two right sided veins electrically connected to the body the LA. The EAM showed no significant scar in the left atrium.
The LA was normal in size.
Following the EAM, preparation were made for ablation.
Ablation:
Ablation # 1: Pulmonary vein Isolation:
Glycopyrrolate 0.2 mg was given prior to the placement of ablation. Using Para[employer]oot� pulsed field ablation system, pulmonary vein isolation was achieved. First the ablation catheter was placed in the LSPV and ostial ablation lesions were performed
in a counter clock watson approach all around the PV ostium circumferentially. Then the catheter was placed on the antral location and multiple ablation lesions were placed circumferentially on the antrum of the vein.
In the similar fashion, the LIPV were isolated.
Then the catheter was moved to right sided veins. The ostial and antral ablations were placed as noted above to the RSPV and RIPV.
Summary of ablation applied:
LSPV: 14 lesions ;�������������� RSPV: 19 lesions
LIPV: 15 lesions; �������������� RIPV: 15 lesions
Total 63 ablation lesions.
Post ablation Electroanatomic mapping:
Once the sinus rhythm achieved, the LA was mapped with Pentaray in detail.
The veins were isolated and normal electrograms noted in the posterior wall. Excellent WACA ablation noted with excellent demarcation of LA myocardium and isolated antral tissue. There was a block noted in the posterior wall with conduction from
floor to the posterior wall indicating block.
EPS and Confirmation of the PVI and bidirectional block:
Following achievement of entrance block at the pulmonary veins, pacing from the HD catheter in each of the four veins at 10 milliamps for 2 milliseconds showed entrance and exit block. All PVI were rechecked at the end of the case and remained
isolated. Entrance and exit block were demonstrated in all veins.
Procedure End
ICE study was done again that showed no epicardial accumulation. No complications noted.
Following the completion of the EP study, catheters were removed. Protamine 30 mg was given at the end of the procedure and ACT was checked repeatedly. The sheaths were removed and hemostasis achieved with manual compression after acceptable ACT is
achieved.
Left atrial Pressure:
Mean LA pressure was 15mmHg
Mean RA pressure was 8mmHg
Estimated Blood loss:
<10 cc
Specimens Removed:
None.
Implants / Devices:
None
Urine output:
None
Packs / Drains/ Tubes:
None
Instrument / Sponge Count Correct:
Yes
Complications of the Procedure:
None
Condition of Patient at Time of Transfer:
Hemodynamically stable with no neurological or vascular compromise.
Summary:
Successful atrial fibrillation ablation with Pulsed Field approach for pulmonary vein isolation
Figures from the Procedure:
Figure 1: The electroanatomic mapping (EAM) of the left atrium with bipolar voltage (purple indicates normal electrical activity with red as no myocardial muscle electric activity indicating a line of block or scar.
[2024-05-01] MEDS: TYLENOL 650 MG PO (11:04)
[2024-05-01] MEDS: ZOFRAN 4 MG IV (12:53)
[2024-05-01] MEDS: FLOMAX 0.4 MG PO (12:56)
--- NOTE | 2024-05-01 13:58 | PTCARENOTE ---
in with pt, unable to void, attempted to go to bathroom with water running, drinking extra fluids and walking aroud unit, explained to pt he has time, when it gets to point is uncomfortable will will bladder scan and if urine retention will have to
straight cath and keep over night to aimee koenig plan for pt and pt now and aware who is at bedside, will cont to monitor pt. this nurse is temporary watching pt while primary nurse is away from area. will update nurse when return
--- NOTE | 2024-05-01 14:57 | W.PN.UPDATE ---
Update Note
Progress Note Update
69 yo WM s/p PVI (same day). He denies cp, sob, riddhi diet, amb w/o dizziness, EKG SR 1 deg AVB, R fem site c/d/i no HT, soft. He had some difficulty voiding but with ambulation, flomax 0.4 x 1, and increased PO intake he is voiding, I did recommend
f/u with urology as outpt. He will take Eliquis at home tonight. Activity restrictions reviewed. 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 He is for d/c home after 3pm.
== END 2024-05-01 15:12 | disposition home or self-care (01) ==
LOC: CATH 06:00
PROVIDERS: ATTENDING PHYSICIAN Internal Medicine Cardiovascular Disease; FAMILY PHYSICIAN Family Medicine; OTHER PHYSICIAN Internal Medicine Cardiovascular Disease
DX: I48.0 Paroxysmal atrial fibrillation (principal); R06.02 Shortness of breath; R05.9 Cough, unspecified; I11.0 Hypertensive heart disease with heart failure; R00.0 Tachycardia, unspecified; Z79.899 Other long term (current) drug therapy; R73.03 Prediabetes; G47.00 Insomnia, unspecified; M19.90 Unspecified osteoarthritis, unspecified site; Z87.442 Personal history of urinary calculi; Z87.891 Personal history of nicotine dependence; Z79.01 Long term (current) use of anticoagulants; Z88.7 Allergy status to serum and vaccine; Z79.84 Long term (current) use of oral hypoglycemic drugs
CPT/HCPCS: C1733; C1769; C1759; C1892; C1732; C1730; C1894; 36415; 80053; 85025; 85347; 86850; 86900; 86901; 93005; 93656; C1760